=== PATIENT | female | born 1970 | race African-American/Black ===

== ENCOUNTER 2017-06-04 13:47 | Observation (INO) ==
[2017-06-04] MEDS ORDERED: ASPIRIN 325 MG TABLET PO STA (14:07)
[2017-06-04] MEDS ORDERED: MORPHINE 2 MG/1 ML SYRINGE IV PRN ×2 (14:07→17:17)
[2017-06-04] MEDS ORDERED: METOPROLOL TARTRATE 5 MG/5 ML VIAL IV STA (14:07)
[2017-06-04] MEDS ORDERED: ONDANSETRON 4 MG/2 ML VIAL IV PRN ×2 (14:07→17:17)
[2017-06-04] MEDS ORDERED: ALUM/MAG/SIMETH/LIDO VISC 1:1 30 ML BOTTLE PO STA (14:07)
[2017-06-04] MEDS ORDERED: NITROGLYCERIN 2% OINT 1 INCH/GM PACK TOP STA (14:07)
[2017-06-04] MEDS ORDERED: ASPIRIN 325 MG TABLET ONE (14:30)
[2017-06-04] MEDS ORDERED: NITROGLYCERIN 2% OINT 1 INCH/GM PACK TOP ONE (14:30)
[2017-06-04] MEDS ORDERED: ONDANSETRON 4 MG/2 ML VIAL ONE (14:31)
[2017-06-04] MEDS ORDERED: MORPHINE 2 MG/1 ML SYRINGE ONE (14:31)
[2017-06-04] MEDS ORDERED: ALUM/MAG/SIMETH/LIDO VISC 1:1 30 ML BOTTLE PO ONE (14:31)
[2017-06-04 14:37] LABS: Basophils % 0.5 % (0.0-0.8); Eosinophils # 0.1 10*3/uL (0.0-0.87); Eosinophils % 1.8 % (0.00-10.9); Hematocrit 34.4 VOL% (35.7-47.0); Hemoglobin 11.7 GM/DL (12.0-16.0); Immature Granulocytes % 0.4 %; Immature Granulocytes Absolute 0.02 #; Lymphocytes # 2.4 10*3/uL (1.4-4.0); Lymphocytes % 42.6 % (21.3-54.2); Mean Corpuscular Hemoglobin 31 PG (27-34); Mean Corpuscular Volume 90.8 FL (87-102); Mean Platelet Volume 9.8 FL (9.6-12.0); Monocytes # 0.5 10*3/uL (0.11-0.8); Monocytes % 8.5 % (1.7-12.7); Neutrophils # 2.6 10*3/uL (1.4-7.4); Neutrophils % 46.2 % (38.7-73.9); Platelet Count 192 T/CUMM (130-400); Red Blood Count 3.79 MC/CUMM (3.8-5.5); Red Cell Distribution Width 12.5 % (9.3-17.3); White Blood Count 5.6 T/CUMM (4-12)
[2017-06-04 14:43] LABS: Apearance,Urine CLEAR (Clear); Bilirubin,Urine Negative (Negative); Blood, Urine Negative (Negative); Glucose,Urine (UA) Negative (Negative); Ketones,Urine Negative (Negative); Mucus,Urine Occasional /LPF (Occasional); Nitrite,Urine Negative (Negative); Protein,Urine Negative; RBC,Urine <1 /HPF (0-4); Squamous Epithelial Cell,Urine Occasional /HPF (0-10); Urine Color Straw (Yellow); Urine Specific Gravity 1.012 (1.001-1.035); Urine Urobilinogen < 2.0 EU/DL (0.2-1.0); WBC,Urine 2 /HPF (0-6)
[2017-06-04 14:46] LABS: PT Patient Result 10.7 SECS; Partial Thromboplastin Time 24.8 SECS (0-40)
[2017-06-04 14:54] LABS: Alanine Aminotransferase 20 U/L (13-56); Albumin 3.4 G/DL (3.4-5.0); Alkaline Phosphatase 117 U/L (45-117); Aspartate Amino Transferase 17 U/L (0-37); Bilirubin,Total < 0.39 MG/DL (0.2-1.0); Blood Urea Nitrogen 11 MG/DL (7-18); Calcium 8.8 MG/DL (8.5-10.1); Glucose 97 MG/DL (74-106); Osmolality,Calculated 277.4 MOS/KG (273-304); Potassium 3.9 MMOL/L (3.5-5.1); Sodium 140 MMOL/L (136-145); Total Protein 7.2 G/DL (6.4-8.3)
[2017-06-04 15:06] LABS: Barbiturates Screen,Urine Negative (Negative); Benzodiazepines Screen,Urine Negative (Negative); Cannabinoid Screen,Urine Negative (Negative); Opiate Screen,Urine Negative (Negative); Phencyclidine Screen,Urine Negative (Negative)
[2017-06-04 18:28] LABS: Phenytoin (Dilantin) 7.8 UG/ML (10-20); Risk Ratio 3.94; VLDL CHOLESTEROL 23.8 MG/DL
[2017-06-04] MEDS: PHENYTOIN ER 100 MG CAPSULE PO SCH (21:59)
[2017-06-04] MEDS: METOCLOPRAMIDE 5 MG TABLET PO SCH (21:59)
[2017-06-04] MEDS: DIVALPROEX ER 500 MG TABLET PO SCH (21:59)
[2017-06-04] MEDS: BENZTROPINE 1 MG TABLET PO SCH (21:59)
[2017-06-04] MEDS ORDERED: NITROGLYCERIN SL 0.4 MG TABLET SL ONE (23:40)
[2017-06-04] MEDS ORDERED: NITROGLYCERIN SL 0.4 MG TABLET SL PRN (23:40)
[2017-06-05 02:16] LABS: Basophils % 0.4 % (0.0-0.8); Eosinophils # 0.1 10*3/uL (0.0-0.87); Eosinophils % 1.9 % (0.00-10.9); Hematocrit 33.6 VOL% (35.7-47.0); Hemoglobin 11.1 GM/DL (12.0-16.0); Immature Granulocytes % 0.4 %; Immature Granulocytes Absolute 0.02 #; Lymphocytes # 2.2 10*3/uL (1.4-4.0); Lymphocytes % 41.3 % (21.3-54.2); Mean Corpuscular Hemoglobin 31 PG (27-34); Mean Corpuscular Volume 92.6 FL (87-102); Mean Platelet Volume 9.8 FL (9.6-12.0); Monocytes # 0.4 10*3/uL (0.11-0.8); Neutrophils # 2.5 10*3/uL (1.4-7.4); Platelet Count 190 T/CUMM (130-400); Red Blood Count 3.63 MC/CUMM (3.8-5.5); Red Cell Distribution Width 12.5 % (9.3-17.3); White Blood Count 5.3 T/CUMM (4-12)
[2017-06-05 03:02] LABS: Alanine Aminotransferase 27 U/L (13-56); Albumin 3.1 G/DL (3.4-5.0); Alkaline Phosphatase 116 U/L (45-117); Aspartate Amino Transferase 16 U/L (0-37); Bilirubin,Total < 0.39 MG/DL (0.2-1.0); Blood Urea Nitrogen 16 MG/DL (7-18); Calcium 8.5 MG/DL (8.5-10.1); Glucose 106 MG/DL (74-106); Osmolality,Calculated 277.5 MOS/KG (273-304); Potassium 4.2 MMOL/L (3.5-5.1); Sodium 139 MMOL/L (136-145); Total Protein 6.5 G/DL (6.4-8.3)
[2017-06-05] MEDS: METOCLOPRAMIDE 5 MG TABLET PO SCH ×4 (07:05→21:12)
[2017-06-05] MEDS: PANTOPRAZOLE 40 MG VIAL IV SCH (08:52)
[2017-06-05] MEDS ORDERED: VILAZODONE HCL PO SCH (09:00)
[2017-06-05] MEDS ORDERED: TRIFLUOPERAZINE HCL PO SCH (09:00)
[2017-06-05] MEDS ORDERED: NON-FORMULARY MEDICATION (Omeprazole [Prilosec] 20 MG) PO SCH (09:00)
[2017-06-05] MEDS ORDERED: PANTOPRAZOLE 40 MG TABLET PO SCH (09:00)
[2017-06-05] MEDS: DIVALPROEX ER 500 MG TABLET PO SCH ×2 (09:58→21:12)
[2017-06-05] MEDS: TRIAMTERENE/HCTZ 37.5-25 MG CAPSULE PO SCH (09:58)
[2017-06-05] MEDS: BENZTROPINE 1 MG TABLET PO SCH ×2 (09:58→21:12)
[2017-06-05] MEDS: PHENYTOIN ER 100 MG CAPSULE PO SCH ×3 (10:01→21:12)
[2017-06-05] MEDS: ASPIRIN CHEW 81 MG TABLET PO SCH (10:03)
[2017-06-06] MEDS ORDERED: PHENYTOIN ER 100 MG CAPSULE PO SCH (06:39)
[2017-06-06] MEDS: BENZTROPINE 1 MG TABLET PO SCH (09:19)
[2017-06-06] MEDS: ASPIRIN CHEW 81 MG TABLET PO SCH (09:19)
[2017-06-06] MEDS: METOCLOPRAMIDE 5 MG TABLET PO SCH ×2 (09:19→13:51)
[2017-06-06] MEDS: TRIAMTERENE/HCTZ 37.5-25 MG CAPSULE PO SCH (09:20)
[2017-06-06] MEDS: PANTOPRAZOLE 40 MG VIAL IV SCH (09:20)
[2017-06-06] MEDS: DIVALPROEX ER 500 MG TABLET PO SCH (09:20)
[2017-06-06] MEDS ORDERED: PROPOFOL 200 MG/20 ML VIAL IV ONE (12:14)
[2017-06-06] MEDS ORDERED: LIDOCAINE 1% 5 ML VIAL ONE (12:14)
[2017-06-06 12:57] VITALS: BP 121/86
== END 2017-06-06 17:45 | disposition home or self-care (01) ==
LOC: N.ED 13:47 → N.EDINP 13:47 → N.2E 19:41
PROVIDERS: ADMIT Family Medicine; ATTEND Family Medicine

== ENCOUNTER 2019-08-29 14:42 | Observation (INO) ==
[2019-08-29 16:34] LABS: Basophils % 0.5 % (0.0-0.8); Eosinophils % 0.6 % (0.00-10.9); Hematocrit 34.1 VOL% (35.7-47.0); Immature Granulocytes % 0.6 %; Immature Granulocytes Absolute 0.04 #; Lymphocytes # 1.8 10*3/uL (1.4-4.0); Lymphocytes % 28.7 % (21.3-54.2); Mean Corpuscular HGB Conc 32.3 GM/DL (32-36); Mean Corpuscular Volume 93.2 FL (87-102); Mean Platelet Volume 10.1 FL (9.6-12.0); Monocytes % 8.3 % (1.7-12.7); Neutrophils % 61.3 % (38.7-73.9); Platelet Count 173 T/CUMM (130-400); Red Blood Count 3.66 MC/CUMM (3.8-5.5); Red Cell Distribution Width 12.7 % (9.3-17.3); White Blood Count 6.2 T/CUMM (4-12)
[2019-08-29 16:51] LABS: Calcium 8.5 MG/DL (8.5-10.1); Osmolality,Calculated 269.8 MOS/KG (273-304)
[2019-08-29 17:44] LABS: Apearance,Urine CLEAR (Clear); Bacteria,Urine Occasional /HPF (Few); Bilirubin,Urine Negative (Negative); Blood, Urine Large mg/dL (Negative); Glucose,Urine (UA) Negative (Negative); Ketones,Urine Negative (Negative); Mucus,Urine Occasional /LPF (Occasional); Nitrite,Urine Negative (Negative); Protein,Urine Negative; RBC,Urine 1 /HPF (0-4); Squamous Epithelial Cell,Urine Occasional /HPF (0-10); Urine Color Yellow (Yellow); Urine Specific Gravity 1.013 (1.001-1.035); Urine Urobilinogen < 2.0 EU/DL (0.2-1.0); WBC,Urine 5 /HPF (0-6)
[2019-08-29] MEDS ORDERED: PHENYTOIN INJ 1,000 MG in SODIUM CHLORIDE 0.9% 100 ML IV STA (17:57)
[2019-08-29] MEDS ORDERED: POTASSIUM CHLORIDE 20 MEQ TABLET PO STA (18:02)
[2019-08-29] MEDS ORDERED: cephALEXin 500 MG CAPSULE PO STA (18:03)
[2019-08-29] MEDS ORDERED: ENOXAPARIN 30 MG/0.3 ML SYRINGE SUBCUT STA (20:04)
[2019-08-29] MEDS ORDERED: ENOXAPARIN 120 MG/0.8 ML SYRINGE SUBCUT ONE (20:36)
[2019-08-29] MEDS ORDERED: ENOXAPARIN 100 MG/ML SYRINGE SUBCUT ONE (20:39)
[2019-08-29] MEDS ORDERED: ENOXAPARIN 100 MG/ML SYRINGE SUBCUT STA (20:41)
[2019-08-29] MEDS ORDERED: ONDANSETRON 4 MG/2 ML VIAL IV PRN (20:55)
[2019-08-29] MEDS ORDERED: GLUCAGON 1 MG VIAL IM PRN (20:55)
[2019-08-29] MEDS ORDERED: DEXTROSE 50% 25 GM/50 ML VIAL IV PRN (20:55)
[2019-08-29] MEDS ORDERED: ZALEPLON 5 MG CAPSULE PO PRN (20:55)
[2019-08-29] MEDS ORDERED: ACETAMINOPHEN 325 MG TABLET PO PRN (20:55)
[2019-08-29 21:23] LABS: Ferritin 87.9 ng/ml (8-252)
[2019-08-29] MEDS ORDERED: hydrALAZINE 20 MG/1 ML VIAL IV PRN (21:26)
[2019-08-29] MEDS ORDERED: traZODone 50 MG TABLET PO PRN (22:21)
[2019-08-29] MEDS ORDERED: OLANZapine 5 MG TABLET PO PRN (22:22)
[2019-08-29] MEDS: ARIPiprazole 10 MG TABLET PO SCH (23:18)
[2019-08-30] MEDS ORDERED: NON-FORMULARY MEDICATION (Omeprazole 20 MG) PO SCH (09:00)
[2019-08-30] MEDS: busPIRone 10 MG TABLET PO SCH ×2 (09:10→21:16)
[2019-08-30] MEDS: PHENYTOIN ER 100 MG CAPSULE PO SCH ×2 (09:10→21:16)
[2019-08-30] MEDS: VENLAFAXINE 75 MG TABLET PO SCH (09:10)
[2019-08-30] MEDS: PANTOPRAZOLE 40 MG TABLET PO SCH (09:10)
[2019-08-30] MEDS: ENOXAPARIN 120 MG/0.8 ML SYRINGE SUBCUT SCH ×2 (09:10→21:16)
[2019-08-30 10:44] LABS: Basophils % 0.5 % (0.0-0.8); Eosinophils # 0.1 10*3/uL (0.0-0.87); Eosinophils % 1.1 % (0.00-10.9); Hematocrit 34.5 VOL% (35.7-47.0); Immature Granulocytes % 0.2 %; Immature Granulocytes Absolute 0.01 #; Lymphocytes # 1.8 10*3/uL (1.4-4.0); Lymphocytes % 40.8 % (21.3-54.2); Mean Corpuscular HGB Conc 31.9 GM/DL (32-36); Mean Corpuscular Volume 94.3 FL (87-102); Mean Platelet Volume 10.1 FL (9.6-12.0); Monocytes % 7.8 % (1.7-12.7); Neutrophils % 49.6 % (38.7-73.9); Platelet Count 181 T/CUMM (130-400); Red Blood Count 3.66 MC/CUMM (3.8-5.5); Red Cell Distribution Width 12.7 % (9.3-17.3); White Blood Count 4.4 T/CUMM (4-12)
[2019-08-30 11:05] LABS: Alanine Aminotransferase 20 U/L (13-56); Albumin 3.1 G/DL (3.4-5.0); Alkaline Phosphatase 114 U/L (45-117); Aspartate Amino Transferase 19 U/L (0-37); Bilirubin,Total < 0.39 MG/DL (0.2-1.0); Blood Urea Nitrogen 5 MG/DL (7-18); Calcium 8.8 MG/DL (8.5-10.1); Estimated Glom Filtration Rate 94 ML/MIN; Ferritin 93.1 ng/ml (8-252); Glucose 100 MG/DL (74-106); Osmolality,Calculated 273.5 MOS/KG (273-304); Total Protein 6.8 G/DL (6.4-8.3)
[2019-08-30] MEDS: ARIPiprazole 10 MG TABLET PO SCH (21:15)
[2019-08-31 06:10] LABS: Basophils % 0.6 % (0.0-0.8); Eosinophils # 0.1 10*3/uL (0.0-0.87); Eosinophils % 1.7 % (0.00-10.9); Hematocrit 34.7 VOL% (35.7-47.0); Hemoglobin 11.5 GM/DL (12.0-16.0); Immature Granulocytes % 0.4 %; Immature Granulocytes Absolute 0.02 #; Lymphocytes # 2.8 10*3/uL (1.4-4.0); Lymphocytes % 52.7 % (21.3-54.2); Mean Corpuscular HGB Conc 33.1 GM/DL (32-36); Mean Corpuscular Volume 92.5 FL (87-102); Monocytes % 6.2 % (1.7-12.7); Neutrophils % 38.4 % (38.7-73.9); Platelet Count 185 T/CUMM (130-400); Red Blood Count 3.75 MC/CUMM (3.8-5.5); Red Cell Distribution Width 12.6 % (9.3-17.3); White Blood Count 5.3 T/CUMM (4-12)
[2019-08-31 06:29] LABS: Calcium 8.7 MG/DL (8.5-10.1); Osmolality,Calculated 272.7 MOS/KG (273-304)
[2019-08-31 07:33] LABS: Eosinophils 3 % (0-10); Lymphocytes 56 % (20-55); Segmented Neutrophils 38 % (50-85); Total Cells Counted 100
[2019-08-31 07:34] LABS: Hypochromasia 1+; Platelet Estimate Adequate
[2019-08-31] MEDS ORDERED: PHENYTOIN ER 100 MG CAPSULE PO ONE (09:00)
[2019-08-31] MEDS: VENLAFAXINE 75 MG TABLET PO SCH (09:40)
[2019-08-31] MEDS: ENOXAPARIN 120 MG/0.8 ML SYRINGE SUBCUT SCH (09:40)
[2019-08-31] MEDS: PANTOPRAZOLE 40 MG TABLET PO SCH (09:40)
[2019-08-31] MEDS: PHENYTOIN ER 100 MG CAPSULE PO SCH (09:40)
[2019-08-31 12:10] VITALS: BP 135/79
[2019-08-31] MEDS: busPIRone 10 MG TABLET PO SCH (12:51)
== END 2019-08-31 15:33 | disposition home or self-care (01) ==
LOC: N.EDINP 14:42 → N.ED 14:42 → N.2E 22:01
PROVIDERS: ADMIT Family Medicine; ATTEND Family Medicine